=== PATIENT | female | born 1960 | race Caucasian/White ===

== ENCOUNTER 2017-04-05 16:11 | Emergency (ER) ==
[2017-04-05 16:19] VITALS: BP 144/84; TEMP 98.2; BMI 37.1
--- NOTE | 2017-04-05 18:11 | DI ---
EXAM: Three views of the right ankle HISTORY: Pain TECHNIQUE: AP lateral, oblique views of the right ankle were obtained. FINDINGS: No acute fractures are seen. The joint spaces are normal. The soft tissues are normal. IMPRESSION: No acute fracture dislocation seen within the right ankle.
--- NOTE | 2017-04-05 18:19 | DI ---
Exam: Right foot three-view History: Injury and pain Findings / impression: No acute bony or articular abnormality. Spurring on the Achilles surface of t he calcaneus. Negative exam otherwise.
--- NOTE | 2017-04-05 18:33 | ED.PDOC ---
General ED Provider: Dr. MARK STEVE Chief Complaint: Ankle Pain/Injury Stated Complaint: ankle and foort pain right side Time Seen by Physician: 16:18 Mode of Arrival: Wheelchair Information Source: Patient Exam Limitations: No limitations Primary Care Provider: ELY MONTOYA Nursing and Triage Documentation Reviewed and Agree: Yes (right sided ankle pain twisted the ankle) Musculoskeletal Complaint Exam - Ankle/Foot Complaint/Exam Location of Injury: Reports: Right, Ankle, Foot Mechanism of Injury: Reports: Trauma (blunt force and twisting) Onset/Duration: today Symptoms Are: Reports: Still present Onset of Pain: Reports: Immediate Current Severity: Moderate Location: Reports: Discrete Character: Reports: Aching, Throbbing, Spasmodic, Stiffness Alleviating: Reports: Rest, Position Aggravating: Reports: Movement, Weight bearing, Prolonged standing Able to Bear Weight: Yes Associated Signs and Symptoms: Reports: Swelling, Bruising Gout Risk Factors: Reports: None Related Surgical History: Reports: None Achilles Tendon Abnormality: Yes Review of Systems - Review Of Systems Constitutional: Reports: No symptoms Eyes: Reports: No symptoms Ears, Nose, Mouth, Throat: Reports: No symptoms Respiratory: Reports: No symptoms Cardiac: Reports: No symptoms GI: Reports: No symptoms : Reports: No symptoms Musculoskeletal: Reports: Joint pain Skin: Reports: No symptoms Neurological: Reports: No symptoms Endocrine: Reports: No symptoms Hematologic/Lymphatic: Reports: No symptoms All Other Systems: Reviewed and Negative Past Medical History - Past Medical History Previously Healthy: Yes Endocrine: Reports: None Cardiovascular: Reports: None Respiratory: Reports: None Hematological: Reports: None Gastrointestinal: Reports: None Genitourinary: Reports: None Neuro/Psych: Reports: None Musculoskeletal: Reports: None Cancer: Reports: None Last Menstrual Period: hysterectomy - Surgical History General Surgical History: Reports: None - Family History Family History: Reports: None - Social History Smoking Status: Never smoker Hx Substance Use: No Alcohol Screening: None Physical Exam - Physical Exam Appearance: Well-appearing, No pain distress, Well-nourished Eyes: JR, EOMI, Conjunctiva clear ENT: Ears normal, Nose normal, Oropharynx normal Respiratory: Airway patent, Breath sounds clear, Breath sounds equal, Respirations nonlabored Cardiovascular: RRR, Pulses normal, No rub, No murmur GI/: Soft, Nontender, No masses, Bowel sounds normal, No Organomegaly Musculoskeletal: Limited ROM (right ankle ) Skin: Warm, Dry, Normal color Neurological: Sensation intact, Motor intact, Reflexes intact, Cranial nerves intact, Alert, Oriented Psychiatric: Affect appropriate, Mood appropriate Critical Care Note - Critical Care Note Total Time (mins): 0 Course - Course Orders, Labs, Meds: Orders Category Date Time Status ANKLE, RIGHT MIN 3 VIEWS Stat RADS 04/05/17 17:27 Completed FOOT, RIGHT 3 VIEWS Stat RADS 04/05/17 17:27 Completed Vital Signs: Temp Pulse Resp BP Pulse Ox 04/05/17 16:15 98.2 F 69 16 144/84 H 96 Departure - Departure Time of Disposition: 19:00 Disposition: HOME SELF-CARE Discharge Problem: Ankle pain Right ankle sprain Qualifiers: Encounter type: initial encounter Involved ligament of ankle: unspecified ligament Qualified Code(s): S93.401A - Sprain of unspecified ligament of right ankle, initial encounter Sprain of foot, right Qualifiers: Encounter type: initial encounter Qualified Code(s): S93.601A - Unspecified sprain of right foot, initial encounter Instructions: Ankle Sprain (ED) Condition: Good Pt referred to PMD for follow-up: Yes Additional Instructions: Please call your Family Physician as soon as possible to schedule a follow-up appointment. Allergies/Adverse Reactions: Allergies pregabalin [From Lyrica] Adverse Reaction (Verified 04/05/17 16:19) Sulfa (Sulfonamide Antibiotics) Adverse Reaction (Verified 04/05/17 16:19) Disposition Discussed With: Patient, Family
== END 2017-04-05 18:48 | disposition home or self-care (01) ==
LOC: ED 16:11
DX: S93.401A Sprain of unspecified ligament of right ankle, initial encounter (principal); S93.601A Unspecified sprain of right foot, initial encounter; X50.1XXA Overexertion from prolonged static or awkward postures, initial encounter
CPT/HCPCS: 99282

== ENCOUNTER 2017-08-29 06:08 | Emergency (ER) | payer OTHER ==
[2017-08-29] MEDS ORDERED: DECADRON 4 MG/ML SDV IM STA (06:19)
[2017-08-29] MEDS ORDERED: BENADRYL IM STA (06:19)
[2017-08-29 06:20] VITALS: BP 92/48; TEMP 97.6; BMI 33.9
--- NOTE | 2017-08-29 06:23 | ED.PDOC ---
General ED Provider: Dr. PARTHA RIOS-ER Chief Complaint: Rash Stated Complaint: im itching all over Time Seen by Physician: 06:10 Mode of Arrival: Walk-In Information Source: Patient Exam Limitations: No limitations Primary Care Provider: ELY MONTOYA Nursing and Triage Documentation Reviewed and Agree: Yes Reviewed sepsis parameters & appropriate labs ordered?: Yes System Inflammatory Response Syndrome: Not Applicable Sepsis Protocol: For patient's 13 years and over: Temp is 96.8 and below OR 101 and greater Pulse >90 BPM Resp >20/minute Acutely Altered Mental Status Are patient's symptoms suggestive of a new infection, such as: -Pneumonia -Skin, Soft Tissue -Endocarditis -UTI -Bone, Joint Infection -Implantable Device -Acute Abdominal Infection -Wound Infection -Meningitis -Blood Stream Catheter Infection -Unknown Skin Complaint Exam - Skin Rash/Itching Complaint/Exam Onset/Duration: several hours Symptoms Are: Still present Initial Severity: Mild Current Severity: Moderate Location: trunk and extremities Potential Exposures: Reports: Unknown Aggravating: Reports: None Alleviating: Reports: None Associated Signs and Symptoms: Denies: Difficulty breathing, Fever, Chills Skin Findings: Present: Urticaria, Papules Differential Diagnoses: Allergic Reaction Review of Systems - Review Of Systems Constitutional: Reports: No symptoms Eyes: Reports: No symptoms Ears, Nose, Mouth, Throat: Reports: No symptoms Respiratory: Reports: No symptoms Cardiac: Reports: No symptoms GI: Reports: No symptoms : Reports: No symptoms Musculoskeletal: Reports: No symptoms Skin: Reports: Rash Neurological: Reports: No symptoms Endocrine: Reports: No symptoms Hematologic/Lymphatic: Reports: No symptoms All Other Systems: Reviewed and Negative Past Medical History - Past Medical History Previously Healthy: Yes Endocrine: Reports: None Cardiovascular: Reports: None Respiratory: Reports: None Hematological: Reports: None Gastrointestinal: Reports: None Genitourinary: Reports: None Neuro/Psych: Reports: None Musculoskeletal: Reports: None Cancer: Reports: None Last Menstrual Period: PT HAS HAD A HYSTERECTOMY - Surgical History General Surgical History: Reports: None - Family History Family History: Reports: None - Social History Smoking Status: Never smoker Hx Substance Use: No Alcohol Screening: None - Immunizations Tetanus Shot up to Date: Yes Physical Exam - Physical Exam Appearance: Well-appearing, No pain distress, Well-nourished Eyes: JR, EOMI, Conjunctiva clear ENT: Ears normal, Nose normal, Oropharynx normal Neck: Supple Respiratory: Airway patent, Breath sounds clear, Breath sounds equal, Respirations nonlabored Cardiovascular: RRR, Pulses normal, No rub, No murmur GI/: Soft, Nontender, No masses, Bowel sounds normal, No Organomegaly Musculoskeletal: Normal strength, ROM intact, No edema, No calf tenderness Skin: Warm, Dry, Normal color Neurological: Sensation intact, Motor intact, Reflexes intact, Cranial nerves intact, Alert, Oriented Psychiatric: Affect appropriate, Mood appropriate, Anxious Re-Evaluation - Re-Evaluation Time of Re-Evaluation: 06:49 Status: Improved Vital Signs Stable: Yes Pain Level: 0 Appearance: NAD Lungs: Clear Skin: Warm and Dry Neuro: Alert and Oriented X3 CV: RRR Critical Care Note - Critical Care Note Total Time (mins): 0 Course - Course Orders, Labs, Meds: Orders Category Date Time Status Dexamethasone 4 mg/ml Inj [Decadron 4 mg/ml Sdv] MEDS 08/29/17 06:19 Discontinued 8 mg IM ONCE STA Diphenhydramine Inj [Benadryl] MEDS 08/29/17 06:19 Discontinued 50 mg IM ONCE STA Medications Discontinued Medications Generic Name Dose Route Start Last Admin Trade Name Freq PRN Reason Stop Dose Admin Dexamethasone Sodium Phosphate 8 mg 08/29/17 06:19 08/29/17 06:27 Decadron 4 Mg/Ml Sdv IM 08/29/17 06:20 8 mg ONCE STA Administration Diphenhydramine HCl 50 mg 08/29/17 06:19 18 06:27 Benadryl IM 08/29/17 06:20 50 mg ONCE STA Administration Vital Signs: Temp Pulse Resp BP Pulse Ox 08/29/17 06:08 97.6 F 71 24 92/48 L 95 Departure - Departure Time of Disposition: 06:49 Disposition: HOME SELF-CARE Discharge Problem: Hives Instructions: Urticaria (ED) Condition: Good Pt referred to PMD for follow-up: Yes IPMP verified?: No Additional Instructions: prednisone 30mg x 2 days then 20mg x 2 days then 10mg x 2 days--portia 180mg bid #30--f/u with pcp Allergies/Adverse Reactions: Allergies pregabalin [From Lyrica] Adverse Reaction (Verified 08/29/17 06:16) Sulfa (Sulfonamide Antibiotics) Adverse Reaction (Verified 08/29/17 06:16) Home Medications: Ambulatory Orders Amitriptyline HCl 25 mg PO BEDTIME 08/29/17 Baclofen 20 mg PO BID 08/29/17 Black Cohosh Root [Menopause Support] 20 mg PO DAILY 08/29/17 Citalopram Hydrobromide [Celexa] 15 mg PO DAILY 08/29/17 Dicyclomine HCl 10 mg PO QID 08/29/17 Duloxetine HCl 40 mg PO BID 08/29/17 Enalapril Maleate 20 mg PO BID 08/29/17 Etodolac 400 mg PO BID 08/29/17 Fenofibric Acid (Choline) [Fenofibric Acid] 135 mg PO BEDTIME 08/29/17 Gabapentin 600 mg PO TID 08/29/17 Hydrocodone/Acetaminophen [Hydrocodon-Acetaminophn 10-325] 1 each PO QID PRN 03/08 Magnesium Oxide [Magnesium] 400 mg PO DAILY 08/29/17 Multivit-Min/Iron/Folic/[id number] [Hair, Skin and Nails Caplet] 1 each PO BID 08/29 Nebivolol HCl [Bystolic] 5 mg PO DAILY 08/29/17 Pantoprazole Sodium 40 mg PO BID 08/29/17 Thyroid,Pork [[place] Thyroid] 60 mg PO DAILY 08/29/17 Tizanidine HCl 4 mg PO BID 08/29/17 Disposition Discussed With: Patient, Family
== END 2017-08-29 06:58 | disposition home or self-care (01) ==
LOC: ED 06:08
DX: L50.9 Urticaria, unspecified (principal)
CPT/HCPCS: 96372; 99282